=== PATIENT | female | born 1995 | race African-American/Black ===

== ENCOUNTER 2019-12-15 16:06 | Emergency (ER) | payer MEDICAID ==
[~2019-12-15] VITALS: Ht 160 cm; Wt 88.0 kg
--- NOTE | 2019-12-15 16:43 | NUR ---
BIB [facility] FROM HOME FOR POSSIBLE SEIZURE. HX SEIZURE. TAKING KEPPRA PRESCIBED. CHIP PERSON [facility]: PIV 18G L WRIST, 500 NS. PT BP 90/65, THEN 110/70 AFTER FLUIDS. PT CONNECTED TO MONITORING. EKG COMPLETE. SEIZURE PRECAUTIONS IN PLACE. PT SIGNIFICANT OTHER AT BEDSIDE. AWAITING ORDERS AT THIS TIME.
--- NOTE | 2019-12-15 17:12 | NUR ---
PT RESTING COMFORTABLY ON GURCINTHYA. VERON. AWAITING ORDERS AT THIS TIME
--- NOTE | 2019-12-15 17:26 | NUR ---
AT BEDSIDE FOR ASSESSMENT.
--- NOTE | 2019-12-15 18:12 | NUR ---
BREAK RN: PT OOB TO BATHROOM W/ FRIEND, GAIT STEADY.
[2019-12-15 18:26] LABS: ALBUMIN 3.7 g/dL (3.4-5.0); ANION GAP 4 mmol/L (5-15); CALCIUM 8.9 mg/dL (8.5-10.1); CHLORIDE 111 mmol/L (98-107)
[2019-12-15 18:36] LABS: BASOPHILS # (AUTO) 0.02 x10^3/uL (0-0.1); BASOPHILS % (AUTO) 1 % (0-1); EOSINOPHILS # (AUTO) 0.04 x10^3/uL (0-0.4); EOSINOPHILS % (AUTO) 1 % (1-7); LYMPHOCYTES # (AUTO) 0.92 x10^3/uL (1-3.4); LYMPHOCYTES % (AUTO) 27 % (22-44); MD NO; MEAN CORPUSCULAR HEMOGLOBIN 27.9 pg (27.0-34.8); MEAN CORPUSCULAR HGB CONC 32.4 g/dL (32.4-35.8); MEAN CORPUSCULAR VOLUME 85.9 fL (80-100); MEAN PLATELET VOLUME 8.8 fL (7.4-10.4); MONOCYTES % (AUTO) 6 % (2-9); NEUTROPHILS # (AUTO) 2.25 x10^3/uL (1.8-6.8); NEUTROPHILS % (AUTO) 66 % (42-75); PLATELET COUNT 277 x10^3/uL (130-400); RED BLOOD COUNT 4.44 x10^6/uL (3.82-5.3); RED CELL DISTRIBUTION WIDTH 14.4 % (9.6-15.2)
--- NOTE | 2019-12-15 18:37 | NUR ---
ALL RESULTS ARE BACK AT THIS TIME. CHART UP FOR RECHECK.
[2019-12-15] MEDS ORDERED: IBUPROFEN 600 MG TABLET ONE (18:47)
[2019-12-15 19:01] VITALS: BP 106/66
== END 2019-12-15 19:14 | disposition home or self-care (01) ==
LOC: ED 19:12
DX: G40.309 Generalized idiopathic epilepsy and epileptic syndromes, not intractable, without status epilepticus (principal); R51 Headache
CPT/HCPCS: 36415; 70450; 80048; 82040; 85025; 93005; 99285